=== PATIENT | female | born 1985 | race Caucasian/White ===

== ENCOUNTER 2019-02-25 14:11 | Emergency (ER) | payer MEDICAID ==
--- NOTE | 2019-02-25 14:46 | ED Physician Documentation ---
History of Present Illness - Stated complaint Stated Complaint: L LEG PX - Chief complaint Chief Complaint: General - History obtained from History obtained from: Patient - History of Present Illness Timing: Yesterday (Previously healthy 33-year-old woman flew from [place] 2 days ago. Starting yesterday she developed a pulsating sensation in the left groin radiating down the medial side of the left leg. No history of DVT or PE. No shortness of breath or chest pain.) Review of Systems Constitutional: denies: Fever, Chills Cardiac: reports: Reviewed and negative Respiratory: reports: Reviewed and negative PD PAST MEDICAL HISTORY - Present Medications Home Medications: Ambulatory Orders Medication Instructions Recorded Confirmed No Known Home Medications 02/25/19 02/25/19 - Allergies Allergies/Adverse Reactions: Allergies Allergy/AdvReac Type Severity Reaction Status Date / Time amoxicillin Allergy Hives Verified 02/25/19 14:19 PD ED PE NORMAL - Vitals Vital signs reviewed: Yes - General General: Alert and oriented X 3, No acute distress - Female Female : 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 No leg tenderness or swelling.) - Back Back: No CVA TTP, No spinal TTP Results - Vitals Vitals: Vital Signs - 24 hr 02/25/19 14:16 Temperature 36.9 C Heart Rate 91 Respiratory 20 Rate Blood Pressure 141/75 H O2 Saturation 99 Oxygen O2 Source Room air Departure - Departure Disposition: 01 Home, Self Care Clinical Impression: Left leg pain Condition: Good Record reviewed to determine appropriate education?: Yes Instructions: ED Strain Muscle Ext Comments: The cause of your left leg pain is unclear. There is no evidence of DVT though. Return for new worsening symptoms. In the meantime gentle stretching and heat.
--- NOTE | 2019-02-25 16:06 | Ultrasound Report ---
Reason: leg pain Procedure Date: 02/25/2019 Accession Number: [id number] / [id number] Procedure: US - Duplex Ext Veins Left CPT Code: Final Report FULL RESULT: EXAM: LEFT LOWER EXTREMITY VENOUS ULTRASOUND EXAM DATE: 02/25/2019 03:42 PM. CLINICAL HISTORY: Leg pain. COMPARISON: None. TECHNIQUE: Real-time sonographic vascular imaging was performed by the cake winder through the lower extremity utilizing both color-flow and Doppler spectral analysis. Multiple international sales representative static images were saved for review. FINDINGS: Common Femoral Vein (CFV): Normal. CFV-GSV Junction: Normal. Profunda Femoral Vein (PFV): Normal. Femoral Vein (FV) Prox: Normal. Femoral Vein (FV) Mid: Normal. Femoral Vein (FV) Dist: Normal. Popliteal Vein: Normal. Posterior Tibial Veins: Normal. Peroneal Veins: Normal. Other: None. IMPRESSION: No evidence for left lower extremity deep venous thrombosis. [facility]
[2019-02-25 16:16] VITALS: BP 131/113
== END 2019-02-25 16:16 | disposition home or self-care (01) ==
LOC: ED 14:11
DX: M79.605 Pain in left leg (principal)
CPT/HCPCS: 99282; 99284

== ENCOUNTER 2023-06-21 09:04 | Emergency (ER) | payer BC, MEDICAID ==
--- NOTE | 2023-06-21 10:18 | XRAY Report ---
PROCEDURE: Tib/Fib RT INDICATIONS: Trauma TECHNIQUE: 2 views of the tibia and fibula were acquired. COMPARISON: None. FINDINGS: Bones: No fractures or dislocations. No suspicious bony lesions. Soft tissues: No suspicious soft tissue calcifications or masses. IMPRESSION: No acute fracture. No osseous lesion. If symptoms and/or clinical suspicion for pathology continue, f urther assessment with repeat plain films, or advanced imaging (e.g., CT, MRI, or bone scan) is recom mended for further assessment. Reviewed by: Reyes Burger MD on 06/21/2023 10:17 AM [facility] Approved by: Reyes Burger MD on 06/21/2023 10:17 AM [facility] Station ID: [id number]
--- NOTE | 2023-06-21 10:20 | ED Physician Documentation ---
PD HPI LOWER EXT INJURY - Stated complaint Stated Complaint: R LOWER LEG INJURY - Chief complaint Chief Complaint: Ext Problem - History obtained from History obtained from: Patient - History of Present Illness PD HPI LOW EXT INJURY LOCATION: Right, Lower leg Type of injury: Fall Where injury occurred: Work Timing - onset: Other (06/09/23) Timing - details: Abrupt onset Pain level max: 2 Pain level now: 2 Improved by: Rest Worsened by: Moving, Palpating Similar symptoms before: Has not had sx before Recently seen: Not recently seen - Treatment prior to arrival Treatment prior to arrival: She tried using a knee brace without improvement. - Additional information Additional information: Patient reports that on June 09 she jumped off the top of some barrels landing on her right leg. She had pain of her proximal lateral right lower leg. Just distal to the knee. No pain in knee or pain in ankle or foot. She describes ongoing pain and a feeling of "instability" of her lower extremity. Pain localizes to the point on the lateral aspect of her proximal tibia. No pain in the knee joint. Never had an effusion. She tried a knee brace without any improvement. Pain is ongoing so she sought treatment. There is a area where she is point tender. Distally not complaining of pain in the ankle or foot. 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 HEENT: Tonsil/Adenoidectomy - Present Medications Home Medications: Ambulatory Orders Medication Instructions Recorded Confirmed No Known Home Medications 02/25/19 02/25/19 - Allergies Allergies/Adverse Reactions: Allergies Allergy/AdvReac Type Severity Reaction Status Date / Time amoxicillin Allergy Hives Verified 06/21/23 09:18 - Social History Does the pt smoke?: No Smoking Status: Never smoker Does the pt drink ETOH?: Yes Does the pt have substance abuse?: No - Immunizations Immunizations are current?: Yes Immunizations: TDAP >10years/unknown - POLST Patient has POLST: No PD ED PE NORMAL - General General: Alert and oriented X 3 - HEENT HEENT: Atraumatic - Back Back: No spinal TTP - Extremities Extremities: Other (She has point tenderness and soft tissue tenderness of the proximal lateral right tibia. No joint line tenderness. She has range of motion of her knee. Distally her ankle is fine. Neurovascular intact in lower extremities.) Results - Vitals Vitals: Vital Signs - 24 hr 06/21/23 09:14 Temperature 36.2 C L Heart Rate 82 Respiratory 20 Rate Blood Pressure 129/81 H O2 Saturation 99 Oxygen O2 Source Room air PD Medical Decision Making - ED course Complexity details: reviewed results, considered differential ED course: Patient presents with proximal right lower extremity pain in setting of inversion injury. Pain localized to movement once very specific area. Plain films are unremarkable. CT scan to evaluate for occult tibial plateau fracture is also negative. This likely represents soft tissue disruption on that side. Will treat with conservative measures NSAIDs and refer to Ortho/PT. No sign this is DVT. No sign of compartment syndrome. Departure - Departure Disposition: 01 Home, Self Care Clinical Impression: Muscle strain of right lower leg Instructions: ED Strain Muscle Ext Follow-Up: Robles Gross MD [Provider Admit Priv/Credential] - As Needed Comments: We saw you today for this pain in your lower leg which likely represents a soft tissue injury of some of the muscles. Bone scales there is no fracture and we confirmed this with CT scan to rule out an occult tibial plateau fracture. Soft tissue injuries require rest we will give you crutches heavy elevate and take NSAIDs like ibuprofen. Will give you a referral to orthopedics and likely physical therapy and rest should be enough as this is likely nonoperative. Return to ER worsening pain any other concerns. Forms: PCP List
--- NOTE | 2023-06-21 11:51 | CT Report ---
PROCEDURE: Lower Extremity RT WO INDICATIONS: pain proximal lateral R tibie. eval plateau injur TECHNIQUE: Noncontrast 3-mm axial sections acquired from the distal tibial shaft to the talar dome, with coronal and sagittal reformats. For radiation dose reduction, the following was used: automated exposure c ontrol, adjustment of mA and/or kV according to patient size. COMPARISON: Plain films dated 06/21/2023 FINDINGS: Image quality: Excellent. Bones: No fracture nor malalignment. No osseous lesion. Soft tissues: Grossly unremarkable. Impression: No acute fracture. No osseous lesion. If symptoms and/or clinical suspicion for pathology continue, further assessment with MRI or bone scan may be helpful for further assessment. Reviewed by: Reyes Burger MD on 06/21/2023 11:49 AM PST Approved by: Reyes Burger MD on 06/21/2023 11:49 AM PST Station ID: [id number]
[2023-06-21 12:45] VITALS: BP 124/78; O2SAT 100
== END 2023-06-21 12:37 | disposition home or self-care (01) ==
LOC: ED 09:04
DX: S86.911A Strain of unspecified muscle(s) and tendon(s) at lower leg level, right leg, initial encounter (principal); W17.89XA Other fall from one level to another, initial encounter; Y93.39 Activity, other involving climbing, rappelling and jumping off; Y99.0 Civilian activity done for income or pay
CPT/HCPCS: 99283